=== PATIENT | female | born 1955 | race Caucasian/White ===

== ENCOUNTER 2020-10-24 08:52 | Emergency (ER) | payer OTHER, MEDICARE ==
[2020-10-24 09:09] VITALS: BP 124/98; PULSE 80; TEMP 99.1; BMI 30.9
== END 2020-10-24 09:42 ==
LOC: JER 08:52
DX: R06.89 Other abnormalities of breathing (principal)
CPT/HCPCS: 99283-25; C9803; U0003; U0005